=== PATIENT | male | born 1985 | race Caucasian/White ===

== ENCOUNTER 2020-09-20 10:00 | Emergency (ER) | payer MEDICAID ==
[~2020-09-20] VITALS: Ht 172.7 cm; Wt 77.0 kg
[2020-09-20] MEDS ORDERED: SERT50TA PO (10:06)
[2020-09-20] MEDS ORDERED: GABA-529 PO (10:06)
[2020-09-20] MEDS ORDERED: QUET100T PO (10:06)
[2020-09-20] MEDS ORDERED: IBUPROFEN 400MG TABLET PO ONE (10:30)
[2020-09-20 10:43] VITALS: BP 137/77
== END 2020-09-20 11:13 | disposition home or self-care (01) ==
LOC: ER 11:09
DX: S63.616A Unspecified sprain of right little finger, initial encounter (principal); F32.9 Major depressive disorder, single episode, unspecified; F41.9 Anxiety disorder, unspecified; V00.131A Fall from skateboard, initial encounter; Y93.89 Activity, other specified; Y92.488 Other paved roadways as the place of occurrence of the external cause; Y99.8 Other external cause status
CPT/HCPCS: 29130; 73140; 99283